=== PATIENT | female | born 1970 | race African-American/Black ===

== ENCOUNTER 2018-08-03 14:13 | Emergency (ER) | payer OTHER ==
--- NOTE | 2018-08-03 14:33 | PDOC ---
Rapid Medical Evaluation Time Seen by Provider: 08/03/18 14:32 Medical Evaluation: 08/03/18 14:32 I performed a brief in-person evaluation of this patient. Chief complaint: Generalized, poor intake, upper abdominal pain, diarrhea, nausea, headache. Pertinent physical exam findings: Mild left-sided weakness, residual s/p CVA 2018. Diffuse abdominal tenderness, worst in epigastrium. I have ordered the following: EKG, CXR, labs, fluids, Pepcid. Patient will proceed to the ED for further evaluation. Discharge Disposition - Diagnosis Epigastric pain Diarrhea Qualifiers: Diarrhea type: unspecified type Qualified Code(s): R19.7 - Diarrhea, unspecified - Referrals - Patient Instructions - Post Discharge Activity
[2018-08-03] MEDS ORDERED: SODIUM CHLORIDE 1,000 ML IV STA (14:34)
[2018-08-03] MEDS ORDERED: FAMOTIDINE 20 MG/50 ML IVPB 20 MG/50 ML MG IVPB ONE ×2 (14:35→15:39)
[2018-08-03 14:37] VITALS: BP 154/83; PULSE 76; TEMP 98.2; BMI 24.0
--- NOTE | 2018-08-03 15:45 | PDOC ---
History of Present Illness - General Chief Complaint: Weakness Stated Complaint: WEANKESS Time Seen by Provider: 08/03/18 14:32 History Source: Patient Exam Limitations: No Limitations - History of Present Illness Initial Comments: 08/03/18 15:59 48-year-old female presents to the emergency room with complaints of generalized fatigue, intermittent diarrhea, and epigastric pain since yesterday. Patient states resides at a custodial which she states is causing her stress aggravating her ulcerative colitis. Patient states frequently has to walk a far distance to obtain food which is difficult for her since she has had a stroke causing left sided weakness. Patient denies fever, chills, headache, dizziness, urinary complaints or bloody stool. Timing/Duration: constant Severity: moderate Associated Symptoms: reports: nausea/vomiting, weakness Past History - Travel Traveled outside of the country in the last 30 days: No - Past Medical History Allergies/Adverse Reactions: Allergies Allergy/AdvReac Type Severity Reaction Status Date / Time latex Allergy Verified 08/03/18 15:12 Penicillins Allergy Verified 08/03/18 15:12 PCN, LATEX Allergy Uncoded 08/03/18 14:49 Home Medications: Ambulatory Orders hydrOXYzine PAMOATE [Vistaril -] 50 mg PO TID #90 capsule 05/26/17 - Suicide/Smoking/Psychosocial Hx Smoking History: Current every day smoker Have you smoked in the past 12 months: No Information on smoking cessation initiated: No Patient Lives Alone: No Lives with/in: custodial Review of Systems - Review of Systems Able to Perform ROS?: Yes Constitutional: Yes: Weakness HEENTM: No: Symptoms Reported Respiratory: No: Symptoms reported Cardiac (ROS): Yes: Lightheadedness ABD/GI: Yes: Diarrhea, Nausea, Indigestion : No: Symptoms Reported Musculoskeletal: No: Symptoms Reported Integumentary: No: Symptoms Reported Neurological: No: Symptoms reported Endocrine: No: Symptoms Reported Hematologic/Lymphatic: No: Symptoms Reported *Physical Exam - Vital Signs Last Vital Signs Temp Pulse Resp BP Pulse Ox 98.2 F 76 20 154/83 98 08/03/18 14:32 08/03/18 14:32 08/03/18 14:32 08/03/18 14:32 08/03/18 14:32 - Physical Exam General Appearance: Yes: Nourished, Appropriately Dressed. No: Apparent Distress HEENT: positive: EOMI, CELINE, TMs Normal, Pharynx Normal. negative: Pale Conjunctivae Neck: positive: Supple Respiratory/Chest: positive: Lungs Clear, Normal Breath Sounds. negative: Respiratory Distress, Accessory Muscle Use Cardiovascular: positive: Regular Rhythm, Regular Rate. negative: Murmur Gastrointestinal/Abdominal: positive: Normal Bowel Sounds, Soft, Tenderness ( epigastric). negative: Distended, Guarding, Rebound Musculoskeletal: negative: CVA Tenderness Extremity: positive: Normal Capillary Refill. negative: Pedal Edema Integumentary: positive: Normal Color, Warm, Moist Neurologic: positive: Normal Mood/Affect, Motor Strength 5/5 (ambulatory) Moderate Sedation - Procedure Monitoring Vital Signs: Procedure Monitoring Vital Signs Temperature 98.2 F 08/03/18 14:32 Pulse Rate 76 08/03/18 14:32 Respiratory Rate 20 08/03/18 14:32 Blood Pressure 154/83 08/03/18 14:32 O2 Sat by Pulse Oximetry (%) 98 08/03/18 14:32 ED Treatment Course - LABORATORY CBC & Chemistry Diagram: 08/03/18 16:10 08/03/18 16:10 Medical Decision Making - Medical Decision Making 08/03/18 16:02 Chief complaint: Fatigue, diarrhea epigastric pain and nausea. Patient states symptoms are aggravated by stress related to housing Exam: Patient epigastric tenderness with no right upper quadrant tenderness. vital signs stable. Plan: Labs chest x-ray urine and EKG ordered in rapid medical evaluation 08/03/18 18:28 Laboratory Tests 08/03/18 08/03/18 08/03/18 15:00 15:49 16:10 WBC 8.3 Hgb 14.0 Hct 40.3 MCV 96.8 H Neutrophils % 57.4 Sodium Potassium Chloride Carbon Dioxide Anion Gap Creatinine Random Glucose Calcium Total Bilirubin AST ALT Alkaline Phosphatase Troponin I < 0.02 Total Protein Urine Ketones 2+ H Urine Blood 1+ H Ur Leukocyte Esterase Negative Urine WBC (Auto) 1 Urine RBC (Auto) 4 Urine HCG, Qual Negative 08/03/18 16:10 WBC Hgb Hct MCV Neutrophils % Sodium 141 Potassium 3.5 Chloride 108 H Carbon Dioxide 26 Anion Gap 8 Creatinine 0.5 L Random Glucose 74 Calcium 8.9 Total Bilirubin 0.7 AST 11 L ALT 17 Alkaline Phosphatase 66 Troponin I Total Protein 6.9 Urine Ketones Urine Blood Ur Leukocyte Esterase Urine WBC (Auto) Urine RBC (Auto) Urine HCG, Qual Patient states feeling better after receiving medication. Patient requesed to eat a dinner tray which she tolerated and is requesting to go home. Patient be discharged home with Zofran *DC/Admit/Observation/Transfer Diagnosis at time of Disposition: Epigastric pain, Nausea Diarrhea Qualifiers: Diarrhea type: unspecified type Qualified Code(s): R19.7 - Diarrhea, unspecified - Discharge Dispostion Disposition: HOME Condition at time of disposition: Improved - Referrals - Patient Instructions Printed Discharge Instructions: DI for Nausea -- Adult, DI for Diarrhea and Traveler's Diarrhea -- Adult Additional Instructions: At this time I recommend eating bland foods for the next 2 days and take Zofran as needed for nausea. Please drink plenty of fluids and allow your body to rest. - Post Discharge Activity
[2018-08-03 16:05] LABS: HCG,QUALITATIVE URINE Negative
[2018-08-03 16:23] LABS: URINE APPEARANCE CLEAR; URINE BILIRUBIN NEGATIVE (<2.0 mg/dL); URINE COLOR LTYELLOW; URINE GLUCOSE (UA) NEGATIVE (NEGATIVE); URINE KETONE 2+ (NEGATIVE); URINE LEUK ESTERASE NEGATIVE (NEGATIVE); URINE NITRITE NEGATIVE (NEGATIVE); URINE PROTEIN NEGATIVE (NEGATIVE); URINE UROBILINOGEN NEGATIVE mg/dL (0.2-1.0)
[2018-08-03 16:32] LABS: EPI CELLS RARE /HPF (FEW); URINE HYALINE CAST 1 /lpf; URINE MUCUS RARE
[2018-08-03 16:41] LABS: BASO % 0.3 % (0-2.0); EOS % 1.6 % (0-4.5); HEMATOCRIT 40.3 % (32.4-45.2); LYMPH % 32.3 % (8-40); MCH 33.7 pg (25.7-33.7); MCHC 34.8 g/dl (32.0-36.0); MEAN CELL VOLUME 96.8 fl (80-96); MEAN PLT VOLUME 8.7 fl (7.5-11.1); MONO % 8.4 % (3.8-10.2); NEUT % 57.4 % (42.8-82.8); PLATELET COUNT 243 K/MM3 (134-434); RBC 4.16 M/mm3 (3.60-5.2); RDW 14.2 % (11.6-15.6); WHITE BLOOD COUNT 8.3 K/mm3 (4.0-10.0)
[2018-08-03 16:44] LABS: ALBUMIN 4.4 g/dl (3.4-5.0); ALK PHOS 66 U/L (45-117); ANION GAP 9 MMOL/L (8-16); BILIRUBIN,TOTAL 0.7 mg/dL (0.2-1); BLOOD UREA NITROGEN 8 mg/dL (7-18); CALCIUM 9.2 mg/dL (8.5-10.1); CHLORIDE 107 mmol/L (98-107); CO2 24 mmol/L (21-32); CREATININE 0.6 mg/dL (0.55-1.3); GLUCOSE,RANDOM 72 mg/dL (74-106); LIPASE 85 U/L (73-393); POTASSIUM 3.7 mmol/L (3.5-5.1); SGOT/AST 14 U/L (15-37); SGPT/ALT 16 U/L (13-61); SODIUM 141 mmol/L (136-145); TOT PROT 7.6 g/dl (6.4-8.2)
[2018-08-03] MEDS ORDERED: ONDANSETRON 4 MG/2 ML VIAL IVPUSH ONE (16:59)
[2018-08-03 17:14] LABS: ALBUMIN 4.2 g/dl (3.4-5.0); ALK PHOS 66 U/L (45-117); ANION GAP 8 MMOL/L (8-16); BILIRUBIN,TOTAL 0.7 mg/dL (0.2-1); BLOOD UREA NITROGEN 8 mg/dL (7-18); CALCIUM 8.9 mg/dL (8.5-10.1); CHLORIDE 108 mmol/L (98-107); CO2 26 mmol/L (21-32); CREATININE 0.5 mg/dL (0.55-1.3); GLUCOSE,RANDOM 74 mg/dL (74-106); POTASSIUM 3.5 mmol/L (3.5-5.1); SGOT/AST 11 U/L (15-37); SGPT/ALT 17 U/L (13-61); SODIUM 141 mmol/L (136-145); TOT PROT 6.9 g/dl (6.4-8.2)
[2018-08-03] MEDS ORDERED: ONDANSETRON 4 MG/2 ML VIAL ONE (17:27)
--- NOTE | 2018-08-04 11:57 | EKG ---
Test Reason : Blood Pressure : / mmHG Vent. Rate : 057 BPM Atrial Rate : 057 BPM P-R Int : 144 ms QRS Dur : 086 ms QT Int : 432 ms P-R-T Axes : -24 074 067 degrees QTc Int : 420 ms SINUS BRADYCARDIA MINIMAL VOLTAGE CRITERIA FOR LVH, MAY BE NORMAL VARIANT BORDERLINE ECG NO PREVIOUS ECGS AVAILABLE Confirmed by PENNY ESTEVEZ MD ([id number]) on 08/04/2018 11:57:19 AM Referred By: Confirmed By:PENNY ESTEVEZ MD
== END 2018-08-03 19:24 | disposition home or self-care (01) ==
LOC: JER 14:13
PROC: 3E033GC Introduction of Other Therapeutic Substance into Peripheral Vein, Percutaneous Approach (ICD-10-PCS; principal; 2018-08-03)
PROC: 3E033GC Introduction of Other Therapeutic Substance into Peripheral Vein, Percutaneous Approach (ICD-10-PCS; 2018-08-03)
DX: R10.13 Epigastric pain (principal); R11.0 Nausea; R19.7 Diarrhea, unspecified; Z59.0 Homelessness; Z88.0 Allergy status to penicillin; Z91.040 Latex allergy status
CPT/HCPCS: 36415; 71046-TC-FY; 80053; 81003; 81015; 83690; 84484; 84703; 85025; 93005; 93010; 99284-25; J7030